=== PATIENT | male | born 1945 ===

== ENCOUNTER 2017-05-28 21:33 | Inpatient (IN) | payer MEDICARE, MEDICAID ==
[2017-05-28] MEDS ORDERED: Albuterol-Ipratrop 3 mg / 0.5 (3 ml) UD ONE (21:50)
[2017-05-28] MEDS ORDERED: Albuterol-Ipratrop 3 mg / 0.5 (3 ml) UD INH STA (21:54)
[2017-05-28 22:08] LABS: ABG ALLEN TEST YES; ARTERIAL BLOOD GAS HCO3 23.7 mmol/L (21-28); ARTERIAL BLOOD GAS O2 SAT 99.7 % (95-98); ARTERIAL BLOOD GAS PCO2 78 mm/Hg (35-45); ARTERIAL BLOOD GAS PH 7.18 (7.35-7.45); ARTERIAL BLOOD GAS PO2 289 mm/Hg (80-100); ARTERIAL BLOOD GAS TCO2 31.5 mmol/L (22-28)
[2017-05-28 22:25] LABS: BASO # 0.1 K/uL (0.0-0.2); BASO % 0.6 % (0.0-2.0); EOS # 1.4 K/uL (0.0-0.7); EOS % 13.5 % (0.0-4.0); HEMOGLOBIN 13.7 g/dL (12.0-18.0); LYMPH # 3.3 K/uL (1.0-4.3); LYMPH % 30.2 % (20.0-40.0); MEAN CELL VOLUME 86.1 fl (80.0-94.0); MEAN CORPUSCULAR HEMOGLOBIN 27.8 pg (27.0-31.0); MEAN CORPUSCULAR HGB CONC 32.3 g/dL (33.0-37.0); MEAN PLATELET VOLUME 6.9 fl (7.2-11.7); MONO # 1.1 K/uL (0.0-0.8); MONO % 9.8 % (0.0-10.0); NEUT # 4.9 K/uL (1.8-7.0); NEUT % 45.9 % (50.0-75.0); NRBC % 0.1 % (0.0-0.0); RBC 4.91 Mil/uL (4.40-5.90); RED CELL DISTRIBUTION WIDTH 16.6 % (11.5-14.5); WHITE BLOOD COUNT 10.8 K/uL (4.8-10.8)
[2017-05-28 22:38] LABS: ALB/GLOB RATIO 1.4 (1.0-2.1); ALBUMIN 4.4 g/dL (3.5-5.0); ALT/SGPT 27 U/L (21-72); AST/SGOT 25 U/L (17-59); BLOOD UREA NITROGEN 9 mg/dl (9-20); CALCIUM 8.9 mg/dL (8.4-10.2); GFR AFRICAN-AMERICAN > 60; GFR NON-AFRICAN AMERICAN > 60
[2017-05-28 22:44] LABS: PARTIAL THROMBOPLASTIN TIME 34.6 Seconds (25.6-37.1); PROTHROMBIN TIME 11.3 Seconds (9.8-13.1)
[2017-05-28] MEDS ORDERED: Magnesium Sulfate 2 gm/50 ml 2 GM/50 ML BAG ONE (22:46)
[2017-05-28] MEDS ORDERED: Magnesium Sulfate 2 gm/50 ml 2 GM/50 ML BAG IVPB ONE (22:51)
[2017-05-28] MEDS ORDERED: Albuterol 0.083% Inhal Sol (2.5 mg/3 mL) UD IH STA (22:51)
[2017-05-28] MEDS ORDERED: Albuterol 0.083% Inhal Sol (2.5 mg/3 mL) UD INH STA ×2 (23:04)
[2017-05-28 23:20] LABS: B-TYPE NATRIURETIC PEPTIDE 77.3 pg/ml (0-900)
[2017-05-28] MEDS ORDERED: Albuterol 0.083% Inhal Sol (2.5 mg/3 mL) UD ONE ×2 (23:20→23:58)
[2017-05-29] MEDS ORDERED: Albuterol-Ipratrop 3 mg / 0.5 (3 ml) UD INH PRN (00:03)
--- NOTE | 2017-05-29 00:07 | ED PDOC ---
HPI: SOB/CHF/COPD Time Seen by Provider: 05/28/17 21:48 Chief Complaint (Nursing): Shortness Of Breath Chief Complaint (Provider): Shortness Of Breath History Per: Patient History/Exam Limitations: no limitations Onset/Duration Of Symptoms: Mins (x 30) Current Symptoms Are (Timing): Still Present Additional Complaint(s): 72 year old female with a history of COPD, DM, CAD, HTN presents to the ED complaining of shortness of breath, onset 30 minutes prior to arrival. Patient also complains of chest tightness consistent with COPD exacerbation. Daughter give additional history that patient usually presents to [place] and that she sometimes gets anxious at hospitals. Limited history due to Ed caveat of dementia. PMD: Will Burroughs Past Medical History Reviewed: Historical Data, Nursing Documentation, Vital Signs Vital Signs: Last Vital Signs Temp 98.1 F 05/29/17 10:04 Pulse 89 05/29/17 13:25 Resp 18 05/29/17 13:25 BP 123/70 05/29/17 13:25 Pulse Ox 99 05/29/17 13:25 - Medical History PMH: Anxiety, Arthritis, CHF, COPD, Dementia, Emphysema, HTN - Surgical History Surgical History: No Surg Hx - Family History Family History: States: Unknown Family Hx - Immunization History Hx Tetanus Toxoid Vaccination: No Hx Influenza Vaccination: Yes Hx Pneumococcal Vaccination: Yes - Home Medications Home Medications: Ambulatory Orders Medication Instructions Recorded Acetaminophen [Tylenol 325mg tab] 2 tab PO Q4 PRN 05/29/17 Albuterol 0.083% [Albuterol 0.083% 3 ml INH Q6 PRN 05/29/17 Inhal [place] (2.5 mg/3 ml) UD] Aspirin [Ecotrin] 81 mg PO DAILY 05/29/17 Atorvastatin [Lipitor] 20 mg PO HS 05/29/17 Budesonide/Formoterol Fumarate 2 puff INH DAILY 05/29/17 [Symbicort 160-4.5 Mcg Inhaler] Clopidogrel [Plavix] 75 mg PO DAILY 05/29/17 DiphenhydrAMINE [Benadryl] 25 mg PO Q4 PRN 05/29/17 Insulin Aspart, Recombinant See Protocol SC ACHS 05/29/17 [Novolog] Magnesium Hydroxide [Milk Of 30 ml PO DAILY PRN 02/13/18 Magnesia] Metoprolol Succinate [Toprol XL] 25 mg PO DAILY 05/29/17 - Allergies Allergies/Adverse Reactions: Allergies Allergy/AdvReac Type Severity Reaction Status Date / Time No Known Allergies Allergy Unverified 12/07/12 10:38 Review of Systems ROS Statement: Except As Marked, All Systems Reviewed And Found Negative (and as per HPI) Cardiovascular: Positive for: Other (Chest tightness) Respiratory: Positive for: Shortness of Breath Physical Exam - Reviewed Nursing Documentation Reviewed: Yes Vital Signs Reviewed: Yes - Physical Exam Appears: Positive for: Uncomfortable, In Acute Distress Head Exam: Positive for: ATRAUMATIC, NORMOCEPHALIC Skin: Positive for: Warm, Dry Eye Exam: Positive for: EOMI, PERRL ENT: Positive for: Other (tacky mucus membranes) Neck: Positive for: Painless ROM, Supple Cardiovascular/Chest: Positive for: Chest Non Tender, Tachycardia. Negative for : Edema, Murmur Respiratory: Positive for: Accessory Muscle Use, Wheezing (inspiratory and expiratory), Respiratory Distress. Negative for: Rales, Stridor Gastrointestinal/Abdominal: Positive for: Soft. Negative for: Tenderness Back: Positive for: Normal Inspection. Negative for: Decreased ROM Extremity: Positive for: Normal ROM. Negative for: Pedal Edema, Calf Tenderness , Deformity Lymphatic: Negative for: Adenopathy Neurologic/Psych: Positive for: Alert, Oriented (x3), Mood/Affect (anxious mood and affec). Negative for: Motor/Sensory Deficits - Laboratory Results Result Diagrams: 05/29/17 09:00 05/29/17 09:00 - ECG O2 Sat by Pulse Oximetry: 98 (RA) Pulse Ox Interpretation: Normal - Critical Care Total Time (In Min): 30 Documented Critical Care: Time excludes all time spent performint seperately billable procedures Medical Decision Making Medical Decision Making: Time: 22:00 Initial Impression: COPD exacerbation, severe Differentials include but are not limited to: CHF, PNA, bronchitis Initial Plan: --Abg shock panel --EKG --BNP --CMP --Magnesium --Phosphrous --Troponin I --CBC --PTT --Prothrombin --CXR --(3) Duoneb 2.5 mg IH --Ativan .5 mg IVP --Duoneb 9 ml INH --Magnesium Sulfate 2 gm in 50 ml IVPB --Prednisolone 125 mg IVP --Blood cx Patient immediately put on Bipap and given Solumedrol and duonebs upon arrival. 1 hour after arrival, patient only slightly improved. IV magnesium ordered as well as Ativan 0.5mg and additional albuterol Labs c/w hypercarbia CXR with no pneumonia or effusion or congestion Discussed with Dr. Dickens for ICU admission Also discussed with Dr. Vila medical service [facility] family findings and plan of care 2400 On reeval pt more comfortable with BIPAP. Scribe Attestation: Documented by Penny Hagan, acting as a scribe for Rosa Bean MD. Provider Scribe Attestation: All medical record entries made by the Scribe were at my direction and personally dictated by me. I have reviewed the chart and agree that the record accurately reflects my personal performance of the history, physical exam, medical decision making, and the department course for this patient. I have also personally directed, reviewed, and agree with the discharge instructions and disposition. Disposition - Clinical Impression Clinical Impression: COPD exacerbation - Patient ED Disposition Is Patient to be Admitted: Yes - Disposition Disposition Time: 23:17 Condition: CRITICAL - Pt Status Changed To: Hospital Disposition Of: Inpatient - Admit Certification Admit to Inpatient:: After my assessment, the patient will require hospitalization for at least two midnights. This is because of the severity of symptoms shown, intensity of services needed, and/or the medical risk in this patient being treated as an outpatient. - POA Present On Arrival: None Critical Care Time - Critical Care Note Total Time (in mins): 30 Documented critical care: time excludes all time spent performing seperately billable procedures.
--- NOTE | 2017-05-29 00:15 | CP.PCM.CON ---
History of Present Illness - History of Present Illness History of Present Illness: CC/Reason for ICU: COPD exac with respiratory failure requiring bipap HPI: This is a 72 y/o male with MHx significant for COPD, CAD, HTN, and dementia who comes in with worsening SOB. Per family member, he was starting to have SOB that progressively became worse over past several days at his NH. This evening, [employer] SOB had acutely worsened. Family is unaware of CP/f/c/n/v/d. Patient unable to provide much information 2/2 dementia. ROS: limited because of patient inability to provide much accurate info MHx/SHx: COPD, ?CAD, HTN, Dementia; no surgeries Allergies: NKDA Medications: Per med rec; pending Family Hx: Patient cannot provide Social Hx: Lives in [place], no tobacco, no EtOH Surrogate dec mkr: Family member info on chart Past Patient History - Past Social History Smoking Status: Former Smoker - CARDIAC Hx Congestive Heart Failure: Yes Hx Hypertension: Yes - PULMONARY Hx Chronic Obstructive Pulmonary Disease (COPD): Yes Hx Emphysema: Yes - NEUROLOGICAL Hx Dementia: Yes - ENDOCRINE/METABOLIC Hx Diabetes Mellitus Type 2: Yes - MUSCULOSKELETAL/RHEUMATOLOGICAL Hx Arthritis: Yes - PSYCHIATRIC Hx Anxiety: Yes Meds Allergies/Adverse Reactions: Allergies Allergy/AdvReac Type Severity Reaction Status Date / Time No Known Allergies Allergy Unverified 12/07/12 10:38 - Medications Medications: Current Medications Albuterol/Ipratropium (Duoneb 3 Mg/0.5 Mg (3 Ml) Ud) 3 ml INH RQ6 PRN PRN Reason: Shortness of Breath Albuterol/Ipratropium (Duoneb 3 Mg/0.5 Mg (3 Ml) Ud) 3 ml INH RQID TIFFANIE Methylprednisolone 60 mg/ (Sodium Chloride) 50 mls @ 100 mls/hr IV Q8H TIFFANIE Azithromycin 500 mg/ Sodium (Chloride) 250 mls @ 250 mls/hr IVPB DAILY TIFFANIE PRN Reason: Protocol Azithromycin 500 mg/ Sodium (Chloride) 250 mls @ 250 mls/hr IVPB STAT STA PRN Reason: Protocol Stop: 05/29/17 01:04 Ceftriaxone Sodium 1 gm/ (Sodium Chloride) 100 mls @ 100 mls/hr IVPB DAILY TIFFANIE PRN Reason: Protocol Pantoprazole Sodium (Protonix Ec Tab) 40 mg PO DAILY TIFFANIE Physical Exam - Constitutional Appears: Chronically Ill Additional comments: On bipap - Head Exam Head Exam: ATRAUMATIC, NORMOCEPHALIC - Eye Exam Eye Exam: EOMI, PERRL - Neck Exam Neck exam: Positive for: Full Rom - Respiratory Exam Respiratory Exam: Rhonchi, Wheezes Additional comments: Coarse breath sounds on bipap - Cardiovascular Exam Cardiovascular Exam: REGULAR RHYTHM, +S1, +S2 - GI/Abdominal Exam GI & Abdominal Exam: Normal Bowel Sounds, Soft - Extremities Exam Extremities exam: Positive for: full ROM, normal inspection - Neurological Exam Additional comments: awake, alert, answers some questions - Psychiatric Exam Psychiatric exam: Normal Affect, Normal Mood - Skin Skin Exam: Dry, Normal Color Results - Vital Signs Recent Vital Signs: Last Vital Signs Temp 98.9 F 05/28/17 23:59 Pulse 128 H 05/28/17 23:59 Resp 28 H 05/28/17 23:59 BP 156/83 H 05/28/17 23:59 Pulse Ox 98 05/29/17 00:08 - Labs Result Diagrams: 05/28/17 22:10 05/28/17 22:10 Labs: Laboratory Results - last 24 hr 05/28/17 05/28/17 05/28/17 21:55 22:10 22:10 WBC 10.8 RBC 4.91 Hgb 13.7 Hct 42.3 MCV 86.1 MCH 27.8 MCHC 32.3 L RDW 16.6 H Plt Count 238 MPV 6.9 L Neut % (Auto) 45.9 L Lymph % (Auto) 30.2 [place] % (Auto) 9.8 Eos % (Auto) 13.5 H Baso % (Auto) 0.6 Neut # (Auto) 4.9 Lymph # (Auto) 3.3 [place] # (Auto) 1.1 H Eos # (Auto) 1.4 H Baso # (Auto) 0.1 PT INR APTT pCO2 78 H* pO2 289 H HCO3 23.7 ABG pH 7.18 L* ABG Total CO2 31.5 H ABG O2 Saturation 99.7 H ABG Base Excess -1.5 Michael Test Yes ABG Potassium 4.6 A-a O2 Difference -30.0 Sodium 131.0 L 135 Chloride 100.0 99 Glucose 108 Lactate 0.5 L FiO2 50.0 Crit Value Called To Dr wayne montano Crit Value Called By Crit Value Read Back Y Blood Gas Notified Time 2207 Potassium 4.6 Carbon Dioxide 26 Anion Gap 15 BUN 9 Creatinine 0.6 L Est GFR ( Amer) > 60 Est GFR (Non-Af Amer) > 60 Random Glucose 101 Calcium 8.9 Phosphorus 5.3 H Magnesium 2.0 Total Bilirubin 0.3 AST 25 ALT 27 Alkaline Phosphatase 54 Troponin I < 0.0120 NT-Pro-B Natriuret Pep 77.3 Total Protein 7.5 Albumin 4.4 Globulin 3.1 Albumin/Globulin Ratio 1.4 Arterial Blood Potassium 4.6 Influenza Typ A,B (EIA) 05/28/17 05/28/17 22:10 22:40 WBC RBC Hgb Hct MCV MCH MCHC RDW Plt Count MPV Neut % (Auto) Lymph % (Auto) [place] % (Auto) Eos % (Auto) Baso % (Auto) Neut # (Auto) Lymph # (Auto) [place] # (Auto) Eos # (Auto) Baso # (Auto) PT 11.3 INR 1.0 APTT 34.6 pCO2 pO2 HCO3 ABG pH ABG Total CO2 ABG O2 Saturation ABG Base Excess Michael Test ABG Potassium A-a O2 Difference Sodium Chloride Glucose Lactate FiO2 Crit Value Called To Crit Value Called By Crit Value Read Back Blood Gas Notified Time Potassium Carbon Dioxide Anion Gap BUN Creatinine Est GFR ( Amer) Est GFR (Non-Af Amer) Random Glucose Calcium Phosphorus Magnesium Total Bilirubin AST ALT Alkaline Phosphatase Troponin I NT-Pro-B Natriuret Pep Total Protein Albumin Globulin Albumin/Globulin Ratio Arterial Blood Potassium Influenza Typ A,B (EIA) Negative for flu a/b - EKG Data EKG Interpreted by: Myself EKG shows normal: Sinus rhythm - EKG Data EKG comments: Sinus tach - Imaging and Cardiology Chest x-ray Status: Image reviewed by me (no obvious infiltrates) Assessment & Plan (1) COPD (chronic obstructive pulmonary disease) Assessment and Plan: 72 y/o male with COPD presenting with respiratory failure requiring BiPAP. -Admit to ICU for close monitoring -Cont Bipap -NPO for now -Starting Ceftriaxone and Azithromycin IV -Continue IV solumedrol -Cont duoenbs -Protonix for GI PPx while on bipap and steroids -SCDs for DVT PPx Status: Acute (2) Respiratory failure Status: Acute
[2017-05-29] MEDS ORDERED: cefTRIAXone (Rocephin) 1 gm Inj ONE (00:45)
[2017-05-29 00:51] LABS: ABG ALLEN TEST YES; ARTERIAL BLOOD GAS HCO3 24.4 mmol/L (21-28); ARTERIAL BLOOD GAS PCO2 44 mm/Hg (35-45); ARTERIAL BLOOD GAS PH 7.36 (7.35-7.45); ARTERIAL BLOOD GAS PO2 264 mm/Hg (80-100); ARTERIAL BLOOD GAS TCO2 26.3 mmol/L (22-28)
[2017-05-29] MEDS ORDERED: Azithromycin 500 MG in Sodium Chloride 0.9% 250 ML IVPB STA (01:00)
[2017-05-29] MEDS ORDERED: methylPREDNISolone 60 MG in Sodium Chloride 0.9% 50 ML IV SCH (06:00)
[2017-05-29] MEDS ORDERED: Magnesium Hydroxide Susp 30 ml UD PO PRN (06:17)
[2017-05-29] MEDS: Insulin Lispro (humaLOG) 100 Units/ml Inj SC SCH ×4 (06:50→23:38)
[2017-05-29] MEDS ORDERED: Albuterol-Ipratrop 3 mg / 0.5 (3 ml) UD ONE ×3 (08:17→16:32)
[2017-05-29] MEDS: Albuterol-Ipratrop 3 mg / 0.5 (3 ml) UD INH SCH ×3 (08:20→16:33)
[2017-05-29] MEDS: Enoxaparin 40 mg Syringe SC SCH (09:24)
[2017-05-29] MEDS: Pantoprazole 40 mg EC Tab PO SCH (09:24)
[2017-05-29 09:47] LABS: HEMOGLOBIN 13.1 g/dL (12.0-18.0); MEAN CELL VOLUME 84.6 fl (80.0-94.0); MEAN CORPUSCULAR HEMOGLOBIN 27.7 pg (27.0-31.0); MEAN CORPUSCULAR HGB CONC 32.7 g/dL (33.0-37.0); RBC 4.74 Mil/uL (4.40-5.90); RED CELL DISTRIBUTION WIDTH 16.5 % (11.5-14.5); WHITE BLOOD COUNT 6.8 K/uL (4.8-10.8)
[2017-05-29 09:51] LABS: ALB/GLOB RATIO 1.3 (1.0-2.1); ALBUMIN 3.7 g/dL (3.5-5.0); ALT/SGPT 25 U/L (21-72); AST/SGOT 21 U/L (17-59); BLOOD UREA NITROGEN 9 mg/dl (9-20); CALCIUM 8.4 mg/dL (8.4-10.2); GFR AFRICAN-AMERICAN > 60; GFR NON-AFRICAN AMERICAN > 60; HDL CHOLESTEROL 52 MG/DL (30-70)
--- NOTE | 2017-05-29 10:00 | CARD ---
APPROVED REPORT EKG Measurement Heart [id number] <Conclusion> Sinus tachycardia Nonspecific ST abnormality Abnormal ECG artefact present
[2017-05-29 10:06] LABS: LDL CHOLESTEROL 66 mg/dL (0-129)
[2017-05-29 10:13] LABS: T4 6.91 ug/dl (5.5-11.0)
[2017-05-29 10:26] LABS: T3 0.935 nmol/L (1.49-2.60)
--- NOTE | 2017-05-29 10:38 | RAD ---
HISTORY: sopb COMPARISON: No prior. FINDINGS: LUNGS: No active pulmonary disease. PLEURA: No significant pleural effusion identified, no pneumothorax apparent. CARDIOVASCULAR: Atherosclerotic aortic calcifications. Cardiomediastinal silhouette within normal limits. OSSEOUS STRUCTURES: Degenerative changes. VISUALIZED UPPER ABDOMEN: Normal. OTHER FINDINGS: None. IMPRESSION: No active disease.
[2017-05-29] MEDS: Fluticasone-Salmeterol 250-50mcg Diskus INH SCH ×2 (11:23→21:12)
[2017-05-29 12:59] LABS: ABG ALLEN TEST YES; ARTERIAL BLOOD GAS HCO3 24.3 mmol/L (21-28); ARTERIAL BLOOD GAS HEMOGLOBIN 13.9 g/dL (11.7-17.4); ARTERIAL BLOOD GAS O2 CAPACITY 18.9 mL/dL (16-24); ARTERIAL BLOOD GAS O2 SAT 100.5 % (95-98); ARTERIAL BLOOD GAS PCO2 36 mm/Hg (35-45); ARTERIAL BLOOD GAS PH 7.42 (7.35-7.45); ARTERIAL BLOOD GAS PO2 143 mm/Hg (80-100); ARTERIAL BLOOD GAS TCO2 24.5 mmol/L (22-28)
[2017-05-29] MEDS: Azithromycin 500 MG in Sodium Chloride 0.9% 250 ML IVPB SCH (13:04)
--- NOTE | 2017-05-29 14:01 | CP.CCUPN ---
CCU Subjective - Physician Review Events Since Last Encounter (Free Text): 05/29/17 13:59 feels much better. CCU Objective - Vital Signs / Intake & Output Vital Signs (Last 4 hours): Vital Signs Temp Pulse Resp BP Pulse Ox 05/29/17 13:25 89 18 123/70 99 05/29/17 12:00 86 05/29/17 10:04 98.1 F 95 H 23 128/73 98 Intake and Output (Last 8hrs): Intake & Output 05/28/17 05/29/17 05/29/17 22:59 06:59 14:59 Weight 155 lb - Medications Active Medications: Active Medications Generic Name Dose Route Start Last Admin Trade Name Freq PRN Reason Stop Dose Admin Albuterol/Ipratropium 3 ml 05/29/17 00:03 Duoneb 3 Mg/0.5 Mg (3 Ml) Ud INH RQ6 PRN Shortness of Breath Albuterol/Ipratropium 3 ml 05/29/17 08:00 05/29/17 13:04 Duoneb 3 Mg/0.5 Mg (3 Ml) Ud INH 3 ml RQID TIFFANIE Administration Aspirin 81 mg 05/29/17 09:00 05/29/17 09:24 Ecotrin PO 81 mg DAILY TIFFANIE Administration Atorvastatin Calcium 20 mg 05/29/17 22:00 Lipitor PO HS TIFFANIE Bisoprolol Fumarate 2.5 mg 05/29/17 09:00 05/29/17 10:01 Zebeta PO 2.5 mg DAILY TIFFANIE Administration Clopidogrel Bisulfate 75 mg 05/29/17 09:00 05/29/17 09:24 Plavix PO 75 mg DAILY TIFFANIE Administration Enoxaparin Sodium 40 mg 05/29/17 09:00 05/29/17 09:24 Lovenox SC 40 mg DAILY TIFFANIE Administration Protocol Azithromycin 500 mg/ Sodium 250 mls @ 250 mls/hr 05/29/17 09:00 05/29/17 13: 04 Chloride IVPB 250 mls/hr DAILY TIFFANIE Administration Protocol Ceftriaxone Sodium 1 gm/ 100 mls @ 100 mls/hr 05/29/17 00:15 05/29/17 00:38 Sodium Chloride IVPB 100 mls/hr DAILY TIFFANIE Administration Protocol Insulin Human Lispro 0 units 05/29/17 05:00 05/29/17 11:08 Humalog SC Not Given Q6H TIFFANIE Protocol Magnesium Hydroxide 30 ml 05/29/17 06:17 Milk Of Magnesia PO DAILY PRN Constipation Methylprednisolone 60 mg 05/29/17 06:00 05/29/17 07:25 Solu-Medrol IV 60 mg Q8H TIFFANIE Administration Pantoprazole Sodium 40 mg 05/29/17 09:00 05/29/17 09:24 Protonix Ec Tab PO 40 mg DAILY TIFFANIE Administration Fluticasone/Salmeterol 1 puff 05/29/17 09:00 05/29/17 11:23 Advair Diskus 250/50 INH 1 puff Q12H TIFFANIE Administration - Patient Studies Lab Studies: Lab Studies 05/29/17 05/29/17 05/29/17 Range/Units 13:21 12:45 09:00 WBC (4.8-10.8) K/uL RBC (4.40-5.90) Mil/uL Hgb (12.0-18.0) g/dL Hct (35.0-51.0) % MCV (80.0-94.0) fl MCH (27.0-31.0) pg MCHC (33.0-37.0) g/dL RDW (11.5-14.5) % Plt Count (130-400) K/uL MPV (7.2-11.7) fl Neut % (Auto) (50.0-75.0) % Lymph % (Auto) (20.0-40.0) % [place] % (Auto) (0.0-10.0) % Eos % (Auto) (0.0-4.0) % Baso % (Auto) (0.0-2.0) % Neut # (Auto) (1.8-7.0) K/uL Lymph # (Auto) (1.0-4.3) K/uL [place] # (Auto) (0.0-0.8) K/uL Eos # (Auto) (0.0-0.7) K/uL Baso # (Auto) (0.0-0.2) K/uL PT (9.8-13.1) Seconds INR (0.9-1.2) APTT (25.6-37.1) Seconds pCO2 36 (35-45) mm/Hg pO2 143 H (80-100) mm/Hg HCO3 24.3 (21-28) mmol/L ABG pH 7.42 (7.35-7.45) ABG Total CO2 24.5 (22-28) mmol/L ABG O2 Saturation 100.5 H (95-98) % ABG O2 Content 19.0 (15-23) ML/dL ABG Base Excess -0.7 (-2.0-3.0) mmol/L ABG Hemoglobin 13.9 (11.7-17.4) g/dL ABG Carboxyhemoglobin 2.2 H (0.5-1.5) % POC ABG HHb (Measured) -0.5 L (0.0-5.0) % ABG Methemoglobin 2.2 (0.0-3.0) % ABG O2 Capacity 18.9 (16-24) mL/dL Michael Test Yes ABG Potassium (3.6-5.2) mmol/L A-a O2 Difference 97.0 mm/Hg Hgb O2 Saturation 96.1 (95.0-98.0) % Sodium (132-148) mmol/L Chloride (98-107) mmol/L Glucose (75-110) mg/dL Lactate (0.7-2.1) mmol/L Vent Mode Bipap Mechanical Rate 16 FiO2 40.0 % Inspiratory BiPAP 12 Expiratory BiPAP 6 Crit Value Called To Crit Value Called By Crit Value Read Back Blood Gas Notified Time Potassium (3.6-5.0) MMOL/L Carbon Dioxide (22-30) mmol/L Anion Gap (10-20) BUN (9-20) mg/dl Creatinine (0.8-1.5) mg/dl Est GFR ( Amer) Est GFR (Non-Af Amer) POC Glucose (mg/dL) 121 H 137 H (65-110) mg/dL Random Glucose (75-110) mg/dL Calcium (8.4-10.2) mg/dL Phosphorus (2.5-4.5) mg/dl Magnesium (1.6-2.3) MG/DL Total Bilirubin (0.2-1.3) mg/dl AST (17-59) U/L ALT (21-72) U/L Alkaline Phosphatase (38-126) U/L Troponin I (0.00-0.120) ng/mL NT-Pro-B Natriuret Pep (0-900) pg/ml Total Protein (6.3-8.2) G/DL Albumin (3.5-5.0) g/dL Globulin (2.2-3.9) gm/dL Albumin/Globulin Ratio (1.0-2.1) Triglycerides (0-149) mg/DL Cholesterol (0-199) mg/dL LDL Cholesterol Direct (0-129) mg/dL HDL Cholesterol (30-70) MG/DL Vitamin B12 (239-931) pg/mL Thyroxine (T4) (5.5-11.0) ug/dl Total T3 (1.49-2.60) nmol/L TSH 3rd Generation (0.46-4.68) mIU/ML Arterial Blood Potassium (3.6-5.2) mmol/L Influenza Typ A,B (EIA) (NEGATIVE) 05/29/17 05/29/17 05/29/17 Range/Units 09:00 09:00 06:42 WBC 6.8 (4.8-10.8) K/uL RBC 4.74 (4.40-5.90) Mil/uL Hgb 13.1 (12.0-18.0) g/dL Hct 40.1 (35.0-51.0) % MCV 84.6 (80.0-94.0) fl MCH 27.7 (27.0-31.0) pg MCHC 32.7 L (33.0-37.0) g/dL RDW 16.5 H (11.5-14.5) % Plt Count 231 (130-400) K/uL MPV (7.2-11.7) fl Neut % (Auto) (50.0-75.0) % Lymph % (Auto) (20.0-40.0) % [place] % (Auto) (0.0-10.0) % Eos % (Auto) (0.0-4.0) % Baso % (Auto) (0.0-2.0) % Neut # (Auto) (1.8-7.0) K/uL Lymph # (Auto) (1.0-4.3) K/uL [place] # (Auto) (0.0-0.8) K/uL Eos # (Auto) (0.0-0.7) K/uL Baso # (Auto) (0.0-0.2) K/uL PT (9.8-13.1) Seconds INR (0.9-1.2) APTT (25.6-37.1) Seconds pCO2 (35-45) mm/Hg pO2 (80-100) mm/Hg HCO3 (21-28) mmol/L ABG pH (7.35-7.45) ABG Total CO2 (22-28) mmol/L ABG O2 Saturation (95-98) % ABG O2 Content (15-23) ML/dL ABG Base Excess (-2.0-3.0) mmol/L ABG Hemoglobin (11.7-17.4) g/dL ABG Carboxyhemoglobin (0.5-1.5) % POC ABG HHb (Measured) (0.0-5.0) % ABG Methemoglobin (0.0-3.0) % ABG O2 Capacity (16-24) mL/dL Michael Test ABG Potassium (3.6-5.2) mmol/L A-a O2 Difference mm/Hg Hgb O2 Saturation (95.0-98.0) % Sodium 136 (132-148) mmol/L Chloride 102 (98-107) mmol/L Glucose (75-110) mg/dL Lactate (0.7-2.1) mmol/L Vent Mode Mechanical Rate FiO2 % Inspiratory BiPAP Expiratory BiPAP Crit Value Called To Crit Value Called By Crit Value Read Back Blood Gas Notified Time Potassium 4.4 (3.6-5.0) MMOL/L Carbon Dioxide 23 (22-30) mmol/L Anion Gap 15 (10-20) BUN 9 (9-20) mg/dl Creatinine 0.5 L (0.8-1.5) mg/dl Est GFR ( Amer) > 60 Est GFR (Non-Af Amer) > 60 POC Glucose (mg/dL) 143 H (65-110) mg/dL Random Glucose 152 H (75-110) mg/dL Calcium 8.4 (8.4-10.2) mg/dL Phosphorus (2.5-4.5) mg/dl Magnesium (1.6-2.3) MG/DL Total Bilirubin 0.3 (0.2-1.3) mg/dl AST 21 (17-59) U/L ALT 25 (21-72) U/L Alkaline Phosphatase 53 (38-126) U/L Troponin I (0.00-0.120) ng/mL NT-Pro-B Natriuret Pep (0-900) pg/ml Total Protein 6.5 (6.3-8.2) G/DL Albumin 3.7 (3.5-5.0) g/dL Globulin 2.8 (2.2-3.9) gm/dL Albumin/Globulin Ratio 1.3 (1.0-2.1) Triglycerides 30 (0-149) mg/DL Cholesterol 129 (0-199) mg/dL LDL Cholesterol Direct 66 (0-129) mg/dL HDL Cholesterol 52 (30-70) MG/DL Vitamin B12 384 (239-931) pg/mL Thyroxine (T4) 6.91 (5.5-11.0) ug/dl Total T3 0.935 L (1.49-2.60) nmol/L TSH 3rd Generation 0.89 (0.46-4.68) mIU/ML Arterial Blood Potassium (3.6-5.2) mmol/L Influenza Typ A,B (EIA) (NEGATIVE) 05/28/17 05/28/17 05/28/17 Range/Units 22:40 22:10 22:10 WBC 10.8 (4.8-10.8) K/uL RBC 4.91 (4.40-5.90) Mil/uL Hgb 13.7 (12.0-18.0) g/dL Hct 42.3 (35.0-51.0) % MCV 86.1 (80.0-94.0) fl MCH 27.8 (27.0-31.0) pg MCHC 32.3 L (33.0-37.0) g/dL RDW 16.6 H (11.5-14.5) % Plt Count 238 (130-400) K/uL MPV 6.9 L (7.2-11.7) fl Neut % (Auto) 45.9 L (50.0-75.0) % Lymph % (Auto) 30.2 (20.0-40.0) % [place] % (Auto) 9.8 (0.0-10.0) % Eos % (Auto) 13.5 H (0.0-4.0) % Baso % (Auto) 0.6 (0.0-2.0) % Neut # (Auto) 4.9 (1.8-7.0) K/uL Lymph # (Auto) 3.3 (1.0-4.3) K/uL [place] # (Auto) 1.1 H (0.0-0.8) K/uL Eos # (Auto) 1.4 H (0.0-0.7) K/uL Baso # (Auto) 0.1 (0.0-0.2) K/uL PT 11.3 (9.8-13.1) Seconds INR 1.0 (0.9-1.2) APTT 34.6 (25.6-37.1) Seconds pCO2 (35-45) mm/Hg pO2 (80-100) mm/Hg HCO3 (21-28) mmol/L ABG pH (7.35-7.45) ABG Total CO2 (22-28) mmol/L ABG O2 Saturation (95-98) % ABG O2 Content (15-23) ML/dL ABG Base Excess (-2.0-3.0) mmol/L ABG Hemoglobin (11.7-17.4) g/dL ABG Carboxyhemoglobin (0.5-1.5) % POC ABG HHb (Measured) (0.0-5.0) % ABG Methemoglobin (0.0-3.0) % ABG O2 Capacity (16-24) mL/dL Michael Test ABG Potassium (3.6-5.2) mmol/L A-a O2 Difference mm/Hg Hgb O2 Saturation (95.0-98.0) % Sodium (132-148) mmol/L Chloride (98-107) mmol/L Glucose (75-110) mg/dL Lactate (0.7-2.1) mmol/L Vent Mode Mechanical Rate FiO2 % Inspiratory BiPAP Expiratory BiPAP Crit Value Called To Crit Value Called By Crit Value Read Back Blood Gas Notified Time Potassium (3.6-5.0) MMOL/L Carbon Dioxide (22-30) mmol/L Anion Gap (10-20) BUN (9-20) mg/dl Creatinine (0.8-1.5) mg/dl Est GFR ( Amer) Est GFR (Non-Af Amer) POC Glucose (mg/dL) (65-110) mg/dL Random Glucose (75-110) mg/dL Calcium (8.4-10.2) mg/dL Phosphorus (2.5-4.5) mg/dl Magnesium (1.6-2.3) MG/DL Total Bilirubin (0.2-1.3) mg/dl AST (17-59) U/L ALT (21-72) U/L Alkaline Phosphatase (38-126) U/L Troponin I (0.00-0.120) ng/mL NT-Pro-B Natriuret Pep (0-900) pg/ml Total Protein (6.3-8.2) G/DL Albumin (3.5-5.0) g/dL Globulin (2.2-3.9) gm/dL Albumin/Globulin Ratio (1.0-2.1) Triglycerides (0-149) mg/DL Cholesterol (0-199) mg/dL LDL Cholesterol Direct (0-129) mg/dL HDL Cholesterol (30-70) MG/DL Vitamin B12 (239-931) pg/mL Thyroxine (T4) (5.5-11.0) ug/dl Total T3 (1.49-2.60) nmol/L TSH 3rd Generation (0.46-4.68) mIU/ML Arterial Blood Potassium (3.6-5.2) mmol/L Influenza Typ A,B (EIA) Negative for flu a/b (NEGATIVE) 05/28/17 05/28/17 05/28/17 Range/Units 22:10 21:55 00:42 WBC (4.8-10.8) K/uL RBC (4.40-5.90) Mil/uL Hgb (12.0-18.0) g/dL Hct (35.0-51.0) % MCV (80.0-94.0) fl MCH (27.0-31.0) pg MCHC (33.0-37.0) g/dL RDW (11.5-14.5) % Plt Count (130-400) K/uL MPV (7.2-11.7) fl Neut % (Auto) (50.0-75.0) % Lymph % (Auto) (20.0-40.0) % [place] % (Auto) (0.0-10.0) % Eos % (Auto) (0.0-4.0) % Baso % (Auto) (0.0-2.0) % Neut # (Auto) (1.8-7.0) K/uL Lymph # (Auto) (1.0-4.3) K/uL [place] # (Auto) (0.0-0.8) K/uL Eos # (Auto) (0.0-0.7) K/uL Baso # (Auto) (0.0-0.2) K/uL PT (9.8-13.1) Seconds INR (0.9-1.2) APTT (25.6-37.1) Seconds pCO2 78 H* 44 (35-45) mm/Hg pO2 289 H 264 H (80-100) mm/Hg HCO3 23.7 24.4 (21-28) mmol/L ABG pH 7.18 L* 7.36 (7.35-7.45) ABG Total CO2 31.5 H 26.3 (22-28) mmol/L ABG O2 Saturation 99.7 H 100.0 H (95-98) % ABG O2 Content (15-23) ML/dL ABG Base Excess -1.5 -0.8 (-2.0-3.0) mmol/L ABG Hemoglobin (11.7-17.4) g/dL ABG Carboxyhemoglobin (0.5-1.5) % POC ABG HHb (Measured) (0.0-5.0) % ABG Methemoglobin (0.0-3.0) % ABG O2 Capacity (16-24) mL/dL Michael Test Yes Yes ABG Potassium 4.6 4.7 (3.6-5.2) mmol/L A-a O2 Difference -30.0 -34.0 mm/Hg Hgb O2 Saturation (95.0-98.0) % Sodium 135 131.0 L 130.0 L (132-148) mmol/L Chloride 99 100.0 100.0 (98-107) mmol/L Glucose 108 147 H (75-110) mg/dL Lactate 0.5 L 1.1 (0.7-2.1) mmol/L Vent Mode Bipap Mechanical Rate 14 FiO2 50.0 40.0 % Inspiratory BiPAP 12 Expiratory BiPAP 6 Crit Value Called To Dr wayne montano Crit Value Called By [place] Crit Value Read Back Y Blood Gas Notified Time 220 Potassium 4.6 (3.6-5.0) MMOL/L Carbon Dioxide 26 (22-30) mmol/L Anion Gap 15 (10-20) BUN 9 (9-20) mg/dl Creatinine 0.6 L (0.8-1.5) mg/dl Est GFR ( Amer) > 60 Est GFR (Non-Af Amer) > 60 POC Glucose (mg/dL) (65-110) mg/dL Random Glucose 101 (75-110) mg/dL Calcium 8.9 (8.4-10.2) mg/dL Phosphorus 5.3 H (2.5-4.5) mg/dl Magnesium 2.0 (1.6-2.3) MG/DL Total Bilirubin 0.3 (0.2-1.3) mg/dl AST 25 (17-59) U/L ALT 27 (21-72) U/L Alkaline Phosphatase 54 (38-126) U/L Troponin I < 0.0120 (0.00-0.120) ng/mL NT-Pro-B Natriuret Pep 77.3 (0-900) pg/ml Total Protein 7.5 (6.3-8.2) G/DL Albumin 4.4 (3.5-5.0) g/dL Globulin 3.1 (2.2-3.9) gm/dL Albumin/Globulin Ratio 1.4 (1.0-2.1) Triglycerides (0-149) mg/DL Cholesterol (0-199) mg/dL LDL Cholesterol Direct (0-129) mg/dL HDL Cholesterol (30-70) MG/DL Vitamin B12 (239-931) pg/mL Thyroxine (T4) (5.5-11.0) ug/dl Total T3 (1.49-2.60) nmol/L TSH 3rd Generation (0.46-4.68) mIU/ML Arterial Blood Potassium 4.6 4.7 (3.6-5.2) mmol/L Influenza Typ A,B (EIA) (NEGATIVE) Laboratory Results - last 24 hr 05/28/17 05/28/17 05/28/17 00:42 21:55 22:10 WBC RBC Hgb Hct MCV MCH MCHC RDW Plt Count MPV Neut % (Auto) Lymph % (Auto) [place] % (Auto) Eos % (Auto) Baso % (Auto) Neut # (Auto) Lymph # (Auto) [place] # (Auto) Eos # (Auto) Baso # (Auto) PT INR APTT pCO2 44 78 H* pO2 264 H 289 H HCO3 24.4 23.7 ABG pH 7.36 7.18 L* ABG Total CO2 26.3 31.5 H ABG O2 Saturation 100.0 H 99.7 H ABG O2 Content ABG Base Excess -0.8 -1.5 ABG Hemoglobin ABG Carboxyhemoglobin POC ABG HHb (Measured) ABG Methemoglobin ABG O2 Capacity Michael Test Yes Yes ABG Potassium 4.7 4.6 A-a O2 Difference -34.0 -30.0 Hgb O2 Saturation Sodium 130.0 L 131.0 L 135 Chloride 100.0 100.0 99 Glucose 147 H 108 Lactate 1.1 0.5 L Vent Mode Bipap Mechanical Rate 14 FiO2 40.0 50.0 Inspiratory BiPAP 12 Expiratory BiPAP 6 Crit Value Called To Dr wayne montano Crit Value Called By [place] Crit Value Read Back Y Blood Gas Notified Time 2207 Potassium 4.6 Carbon Dioxide 26 Anion Gap 15 BUN 9 Creatinine 0.6 L Est GFR ( Amer) > 60 Est GFR (Non-Af Amer) > 60 POC Glucose (mg/dL) Random Glucose 101 Calcium 8.9 Phosphorus 5.3 H Magnesium 2.0 Total Bilirubin 0.3 AST 25 ALT 27 Alkaline Phosphatase 54 Troponin I < 0.0120 NT-Pro-B Natriuret Pep 77.3 Total Protein 7.5 Albumin 4.4 Globulin 3.1 Albumin/Globulin Ratio 1.4 Triglycerides Cholesterol LDL Cholesterol Direct HDL Cholesterol Vitamin B12 Thyroxine (T4) Total T3 TSH 3rd Generation Arterial Blood Potassium 4.7 4.6 Influenza Typ A,B (EIA) 05/28/17 05/28/17 05/28/17 22:10 22:10 22:40 WBC 10.8 RBC 4.91 Hgb 13.7 Hct 42.3 MCV 86.1 MCH 27.8 MCHC 32.3 L RDW 16.6 H Plt Count 238 MPV 6.9 L Neut % (Auto) 45.9 L Lymph % (Auto) 30.2 [place] % (Auto) 9.8 Eos % (Auto) 13.5 H Baso % (Auto) 0.6 Neut # (Auto) 4.9 Lymph # (Auto) 3.3 [place] # (Auto) 1.1 H Eos # (Auto) 1.4 H Baso # (Auto) 0.1 PT 11.3 INR 1.0 APTT 34.6 pCO2 pO2 HCO3 ABG pH ABG Total CO2 ABG O2 Saturation ABG O2 Content ABG Base Excess ABG Hemoglobin ABG Carboxyhemoglobin POC ABG HHb (Measured) ABG Methemoglobin ABG O2 Capacity Michael Test ABG Potassium A-a O2 Difference Hgb O2 Saturation Sodium Chloride Glucose Lactate Vent Mode Mechanical Rate FiO2 Inspiratory BiPAP Expiratory BiPAP Crit Value Called To Crit Value Called By Crit Value Read Back Blood Gas Notified Time Potassium Carbon Dioxide Anion Gap BUN Creatinine Est GFR ( Amer) Est GFR (Non-Af Amer) POC Glucose (mg/dL) Random Glucose Calcium Phosphorus Magnesium Total Bilirubin AST ALT Alkaline Phosphatase Troponin I NT-Pro-B Natriuret Pep Total Protein Albumin Globulin Albumin/Globulin Ratio Triglycerides Cholesterol LDL Cholesterol Direct HDL Cholesterol Vitamin B12 Thyroxine (T4) Total T3 TSH 3rd Generation Arterial Blood Potassium Influenza Typ A,B (EIA) Negative for flu a/b 05/29/17 05/29/17 05/29/17 06:42 09:00 09:00 WBC 6.8 RBC 4.74 Hgb 13.1 Hct 40.1 MCV 84.6 MCH 27.7 MCHC 32.7 L RDW 16.5 H Plt Count 231 MPV Neut % (Auto) Lymph % (Auto) [place] % (Auto) Eos % (Auto) Baso % (Auto) Neut # (Auto) Lymph # (Auto) [place] # (Auto) Eos # (Auto) Baso # (Auto) PT INR APTT pCO2 pO2 HCO3 ABG pH ABG Total CO2 ABG O2 Saturation ABG O2 Content ABG Base Excess ABG Hemoglobin ABG Carboxyhemoglobin POC ABG HHb (Measured) ABG Methemoglobin ABG O2 Capacity Michael Test ABG Potassium A-a O2 Difference Hgb O2 Saturation Sodium 136 Chloride 102 Glucose Lactate Vent Mode Mechanical Rate FiO2 Inspiratory BiPAP Expiratory BiPAP Crit Value Called To Crit Value Called By Crit Value Read Back Blood Gas Notified Time Potassium 4.4 Carbon Dioxide 23 Anion Gap 15 BUN 9 Creatinine 0.5 L Est GFR ( Amer) > 60 Est GFR (Non-Af Amer) > 60 POC Glucose (mg/dL) 143 H Random Glucose 152 H Calcium 8.4 Phosphorus Magnesium Total Bilirubin 0.3 AST 21 ALT 25 Alkaline Phosphatase 53 Troponin I NT-Pro-B Natriuret Pep Total Protein 6.5 Albumin 3.7 Globulin 2.8 Albumin/Globulin Ratio 1.3 Triglycerides 30 Cholesterol 129 LDL Cholesterol Direct 66 HDL Cholesterol 52 Vitamin B12 384 Thyroxine (T4) 6.91 Total T3 0.935 L TSH 3rd Generation 0.89 Arterial Blood Potassium Influenza Typ A,B (EIA) 05/29/17 05/29/17 05/29/17 09:00 12:45 13:21 WBC RBC Hgb Hct MCV MCH MCHC RDW Plt Count MPV Neut % (Auto) Lymph % (Auto) [place] % (Auto) Eos % (Auto) Baso % (Auto) Neut # (Auto) Lymph # (Auto) [place] # (Auto) Eos # (Auto) Baso # (Auto) PT INR APTT pCO2 36 pO2 143 H HCO3 24.3 ABG pH 7.42 ABG Total CO2 24.5 ABG O2 Saturation 100.5 H ABG O2 Content 19.0 ABG Base Excess -0.7 ABG Hemoglobin 13.9 ABG Carboxyhemoglobin 2.2 H POC ABG HHb (Measured) -0.5 L ABG Methemoglobin 2.2 ABG O2 Capacity 18.9 Michael Test Yes ABG Potassium A-a O2 Difference 97.0 Hgb O2 Saturation 96.1 Sodium Chloride Glucose Lactate Vent Mode Bipap Mechanical Rate 16 FiO2 40.0 Inspiratory BiPAP 12 Expiratory BiPAP 6 Crit Value Called To Crit Value Called By Crit Value Read Back Blood Gas Notified Time Potassium Carbon Dioxide Anion Gap BUN Creatinine Est GFR ( Amer) Est GFR (Non-Af Amer) POC Glucose (mg/dL) 137 H 121 H Random Glucose Calcium Phosphorus Magnesium Total Bilirubin AST ALT Alkaline Phosphatase Troponin I NT-Pro-B Natriuret Pep Total Protein Albumin Globulin Albumin/Globulin Ratio Triglycerides Cholesterol LDL Cholesterol Direct HDL Cholesterol Vitamin B12 Thyroxine (T4) Total T3 TSH 3rd Generation Arterial Blood Potassium Influenza Typ A,B (EIA) EKG/Cardiology Studies: Cardiology / EKG Studies 05/28/17 21:54 ELECTROCARDIOGRAM Stat Comment: Mode Of Transportation: Reason For Exam: sob Fingerstick Blood Sugar Results: 121 Assessment/Plan (1) COPD exacerbation Assessment and plan: patient doing much better. ABG normalized. alert and oriented. continue medical therapy, can stop bipap, continue bipap at night. downgrade to med/ surg floors. Current Visit: Yes Status: Acute
--- NOTE | 2017-05-29 19:42 | CP.PCM.HP ---
<Pardeep Ospina - Last Filed: 05/29/17 19:52> History of Present Illness - History of Present Illness History of Present Illness: History obtained from patents chart secondary to patient not able to provide information, currently on bipap and baseline dementia. 72 YO M w/ PMH of COPD, CAD, HTN presented with worsening SOB which has been worsening over the last couple of days as per family. PMH: COPD, Dementia, HTN, CAD PSH: None FH: unknown Allergies PMD: Will Burroughs Present on Admission - Present on Admission Any Indicators Present on Admission: No Past Patient History - Past Medical History & Family History Past Medical History?: Yes - Past Social History Smoking Status: Former Smoker - CARDIAC Hx Cardiac Disorders: Yes Hx Congestive Heart Failure: Yes Hx Hypertension: Yes - PULMONARY Hx Respiratory Disorders: Yes Hx Chronic Obstructive Pulmonary Disease (COPD): Yes Hx Emphysema: Yes - NEUROLOGICAL Hx Neurological Disorder: Yes Hx Dementia: Yes - HEENT Hx HEENT Problems: No - RENAL Hx Chronic Kidney Disease: No - ENDOCRINE/METABOLIC Hx Endocrine Disorders: Yes Hx Diabetes Mellitus Type 2: Yes - HEMATOLOGICAL/ONCOLOGICAL Hx Blood Disorders: No - INTEGUMENTARY Hx Dermatological Problems: No - MUSCULOSKELETAL/RHEUMATOLOGICAL Hx Musculoskeletal Disorders: Yes Hx Arthritis: Yes Hx Falls: No - GASTROINTESTINAL Hx Gastrointestinal Disorders: No - GENITOURINARY/GYNECOLOGICAL Hx Genitourinary Disorders: No - PSYCHIATRIC Hx Psychophysiologic Disorder: Yes Hx Anxiety: Yes Hx Substance Use: No - SURGICAL HISTORY Hx Surgeries: No - ANESTHESIA Hx Anesthesia: No Meds Home Medications: Home Medication List Medication Instructions Recorded Confirmed Type Albuterol/Ipratropium [Duoneb 3 3 ml INH RQ6 PRN neb 06/01/17 Rx mg/0.5 mg (3 ml) UD] Albuterol/Ipratropium [Duoneb 3 3 ml INH RQID neb 06/01/17 Rx mg/0.5 mg (3 ml) UD] Azithromycin [Zithromax] 500 mg PO DAILY #5 tablet 06/01/17 Rx Bisoprolol [Zebeta] 2.5 mg PO DAILY tab 06/01/17 Rx Enoxaparin [Lovenox] 40 mg SC DAILY syr 06/01/17 Rx Methylprednisolone [Medrol Dose 4 mg PO DAILY #21 mg 06/01/17 Rx Pack (21 tabs)] Pantoprazole [Protonix EC Tab] 40 mg PO DAILY ect 06/01/17 Rx QUEtiapine [Seroquel] 12.5 mg PO HS tab 06/01/17 Rx Allergies/Adverse Reactions: Allergies Allergy/AdvReac Type Severity Reaction Status Date / Time shellfish derived Allergy ANAPHYLAXIS Verified 05/29/17 18:27 Physical Exam - Constitutional Appears: Chronically Ill - Head Exam Head Exam: NORMAL INSPECTION - Eye Exam Eye Exam: Normal appearance - Respiratory Exam Respiratory Exam: Rhonchi, Wheezes Additional comments: 0n bipap - Cardiovascular Exam Cardiovascular Exam: REGULAR RHYTHM, +S1, +S2 - GI/Abdominal Exam GI & Abdominal Exam: Soft. absent: Tenderness - Extremities Exam Extremities exam: Negative for: calf tenderness - Neurological Exam Neurological exam: Alert - Skin Skin Exam: Warm Results - Vital Signs Recent Vital Signs: Last Vital Signs Temp 98.9 F 05/29/17 17:15 Pulse 91 H 05/29/17 17:15 Resp 17 05/29/17 17:31 BP 113/67 05/29/17 17:15 Pulse Ox 96 05/29/17 17:31 - Labs Result Diagrams: 05/29/17 09:00 05/29/17 09:00 Labs: Laboratory Results - last 24 hr 05/28/17 05/28/17 05/28/17 00:42 21:55 22:10 WBC RBC Hgb Hct MCV MCH MCHC RDW Plt Count MPV Neut % (Auto) Lymph % (Auto) [place] % (Auto) Eos % (Auto) Baso % (Auto) Neut # (Auto) Lymph # (Auto) [place] # (Auto) Eos # (Auto) Baso # (Auto) PT INR APTT pCO2 44 78 H* pO2 264 H 289 H HCO3 24.4 23.7 ABG pH 7.36 7.18 L* ABG Total CO2 26.3 31.5 H ABG O2 Saturation 100.0 H 99.7 H ABG O2 Content ABG Base Excess -0.8 -1.5 ABG Hemoglobin ABG Carboxyhemoglobin POC ABG HHb (Measured) ABG Methemoglobin ABG O2 Capacity Michael Test Yes Yes ABG Potassium 4.7 4.6 A-a O2 Difference -34.0 -30.0 Hgb O2 Saturation Sodium 130.0 L 131.0 L 135 Chloride 100.0 100.0 99 Glucose 147 H 108 Lactate 1.1 0.5 L Vent Mode Bipap Mechanical Rate 14 FiO2 40.0 50.0 Inspiratory BiPAP 12 Expiratory BiPAP 6 Crit Value Called To Dr wayne montano Crit Value Called By [place] Crit Value Read Back Y Blood Gas Notified Time 2206 Potassium 4.6 Carbon Dioxide 26 Anion Gap 15 BUN 9 Creatinine 0.6 L Est GFR ( Amer) > 60 Est GFR (Non-Af Amer) > 60 POC Glucose (mg/dL) Random Glucose 101 Hemoglobin A1c Calcium 8.9 Phosphorus 5.3 H Magnesium 2.0 Total Bilirubin 0.3 AST 25 ALT 27 Alkaline Phosphatase 54 Troponin I < 0.0120 NT-Pro-B Natriuret Pep 77.3 Total Protein 7.5 Albumin 4.4 Globulin 3.1 Albumin/Globulin Ratio 1.4 Triglycerides Cholesterol LDL Cholesterol Direct HDL Cholesterol Vitamin B12 Thyroxine (T4) Total T3 TSH 3rd Generation Arterial Blood Potassium 4.7 4.6 Influenza Typ A,B (EIA) 05/28/17 05/28/17 05/28/17 22:10 22:10 22:40 WBC 10.8 RBC 4.91 Hgb 13.7 Hct 42.3 MCV 86.1 MCH 27.8 MCHC 32.3 L RDW 16.6 H Plt Count 238 MPV 6.9 L Neut % (Auto) 45.9 L Lymph % (Auto) 30.2 [place] % (Auto) 9.8 Eos % (Auto) 13.5 H Baso % (Auto) 0.6 Neut # (Auto) 4.9 Lymph # (Auto) 3.3 [place] # (Auto) 1.1 H Eos # (Auto) 1.4 H Baso # (Auto) 0.1 PT 11.3 INR 1.0 APTT 34.6 pCO2 pO2 HCO3 ABG pH ABG Total CO2 ABG O2 Saturation ABG O2 Content ABG Base Excess ABG Hemoglobin ABG Carboxyhemoglobin POC ABG HHb (Measured) ABG Methemoglobin ABG O2 Capacity Michael Test ABG Potassium A-a O2 Difference Hgb O2 Saturation Sodium Chloride Glucose Lactate Vent Mode Mechanical Rate FiO2 Inspiratory BiPAP Expiratory BiPAP Crit Value Called To Crit Value Called By Crit Value Read Back Blood Gas Notified Time Potassium Carbon Dioxide Anion Gap BUN Creatinine Est GFR ( Amer) Est GFR (Non-Af Amer) POC Glucose (mg/dL) Random Glucose Hemoglobin A1c Calcium Phosphorus Magnesium Total Bilirubin AST ALT Alkaline Phosphatase Troponin I NT-Pro-B Natriuret Pep Total Protein Albumin Globulin Albumin/Globulin Ratio Triglycerides Cholesterol LDL Cholesterol Direct HDL Cholesterol Vitamin B12 Thyroxine (T4) Total T3 TSH 3rd Generation Arterial Blood Potassium Influenza Typ A,B (EIA) Negative for flu a/b 05/29/17 05/29/17 05/29/17 06:42 09:00 09:00 WBC 6.8 RBC 4.74 Hgb 13.1 Hct 40.1 MCV 84.6 MCH 27.7 MCHC 32.7 L RDW 16.5 H Plt Count 231 MPV Neut % (Auto) Lymph % (Auto) [place] % (Auto) Eos % (Auto) Baso % (Auto) Neut # (Auto) Lymph # (Auto) [place] # (Auto) Eos # (Auto) Baso # (Auto) PT INR APTT pCO2 pO2 HCO3 ABG pH ABG Total CO2 ABG O2 Saturation ABG O2 Content ABG Base Excess ABG Hemoglobin ABG Carboxyhemoglobin POC ABG HHb (Measured) ABG Methemoglobin ABG O2 Capacity Michael Test ABG Potassium A-a O2 Difference Hgb O2 Saturation Sodium 136 Chloride 102 Glucose Lactate Vent Mode Mechanical Rate FiO2 Inspiratory BiPAP Expiratory BiPAP Crit Value Called To Crit Value Called By Crit Value Read Back Blood Gas Notified Time Potassium 4.4 Carbon Dioxide 23 Anion Gap 15 BUN 9 Creatinine 0.5 L Est GFR ( Amer) > 60 Est GFR (Non-Af Amer) > 60 POC Glucose (mg/dL) 143 H Random Glucose 152 H Hemoglobin A1c Calcium 8.4 Phosphorus Magnesium Total Bilirubin 0.3 AST 21 ALT 25 Alkaline Phosphatase 53 Troponin I NT-Pro-B Natriuret Pep Total Protein 6.5 Albumin 3.7 Globulin 2.8 Albumin/Globulin Ratio 1.3 Triglycerides 30 Cholesterol 129 LDL Cholesterol Direct 66 HDL Cholesterol 52 Vitamin B12 384 Thyroxine (T4) 6.91 Total T3 0.935 L TSH 3rd Generation 0.89 Arterial Blood Potassium Influenza Typ A,B (EIA) 05/29/17 05/29/17 05/29/17 09:00 09:00 12:45 WBC RBC Hgb Hct MCV MCH MCHC RDW Plt Count MPV Neut % (Auto) Lymph % (Auto) [place] % (Auto) Eos % (Auto) Baso % (Auto) Neut # (Auto) Lymph # (Auto) [place] # (Auto) Eos # (Auto) Baso # (Auto) PT INR APTT pCO2 36 pO2 143 H HCO3 24.3 ABG pH 7.42 ABG Total CO2 24.5 ABG O2 Saturation 100.5 H ABG O2 Content 19.0 ABG Base Excess -0.7 ABG Hemoglobin 13.9 ABG Carboxyhemoglobin 2.2 H POC ABG HHb (Measured) -0.5 L ABG Methemoglobin 2.2 ABG O2 Capacity 18.9 Michael Test Yes ABG Potassium A-a O2 Difference 97.0 Hgb O2 Saturation 96.1 Sodium Chloride Glucose Lactate Vent Mode Bipap Mechanical Rate 16 FiO2 40.0 Inspiratory BiPAP 12 Expiratory BiPAP 6 Crit Value Called To Crit Value Called By Crit Value Read Back Blood Gas Notified Time Potassium Carbon Dioxide Anion Gap BUN Creatinine Est GFR ( Amer) Est GFR (Non-Af Amer) POC Glucose (mg/dL) 137 H Random Glucose Hemoglobin A1c 5.8 Calcium Phosphorus Magnesium Total Bilirubin AST ALT Alkaline Phosphatase Troponin I NT-Pro-B Natriuret Pep Total Protein Albumin Globulin Albumin/Globulin Ratio Triglycerides Cholesterol LDL Cholesterol Direct HDL Cholesterol Vitamin B12 Thyroxine (T4) Total T3 TSH 3rd Generation Arterial Blood Potassium Influenza Typ A,B (EIA) 05/29/17 05/29/17 13:21 16:32 WBC RBC Hgb Hct MCV MCH MCHC RDW Plt Count MPV Neut % (Auto) Lymph % (Auto) [place] % (Auto) Eos % (Auto) Baso % (Auto) Neut # (Auto) Lymph # (Auto) [place] # (Auto) Eos # (Auto) Baso # (Auto) PT INR APTT pCO2 pO2 HCO3 ABG pH ABG Total CO2 ABG O2 Saturation ABG O2 Content ABG Base Excess ABG Hemoglobin ABG Carboxyhemoglobin POC ABG HHb (Measured) ABG Methemoglobin ABG O2 Capacity Michael Test ABG Potassium A-a O2 Difference Hgb O2 Saturation Sodium Chloride Glucose Lactate Vent Mode Mechanical Rate FiO2 Inspiratory BiPAP Expiratory BiPAP Crit Value Called To Crit Value Called By Crit Value Read Back Blood Gas Notified Time Potassium Carbon Dioxide Anion Gap BUN Creatinine Est GFR ( Amer) Est GFR (Non-Af Amer) POC Glucose (mg/dL) 121 H 135 H Random Glucose Hemoglobin A1c Calcium Phosphorus Magnesium Total Bilirubin AST ALT Alkaline Phosphatase Troponin I NT-Pro-B Natriuret Pep Total Protein Albumin Globulin Albumin/Globulin Ratio Triglycerides Cholesterol LDL Cholesterol Direct HDL Cholesterol Vitamin B12 Thyroxine (T4) Total T3 TSH 3rd Generation Arterial Blood Potassium Influenza Typ A,B (EIA) Assessment & Plan - Assessment and Plan (Free Text) Assessment: 1) COPD exacerbation - Loading dose of Solumedrol in ER - Methyprednisone Q8 - Fluticason/ Salmetrol - Duoneb Q6 - Azithromycin+ Ceftriaxone - X ray : no active disease - Currently on Bipap 2) DVT prophylaxis: Lovenox <Ramos Vila - Last Filed: 06/01/17 16:32> Results - Vital Signs Recent Vital Signs: Last Vital Signs Temp 97.6 F 06/01/17 08:30 Pulse 76 06/01/17 08:30 Resp 20 06/01/17 08:30 BP 119/70 06/01/17 08:30 Pulse Ox 96 06/01/17 08:30 - Labs Result Diagrams: 05/31/17 05:50 05/31/17 05:50 Labs: Laboratory Results - last 24 hr 05/31/17 06/01/17 21:30 13:12 POC Glucose (mg/dL) 107 107 Assessment & Plan - Assessment and Plan (Free Text) Assessment: Patient was personally seen and examined by me in rounds with residents. Available labs and diagnostic data reviewed. Case, Patient's condition and management plan discussed with residents in rounds. Agree with resident's documentation. Plan: As ordered. Ramos Vila MD Plan: Patient was personally seen and examined by me in rounds with residents. Available labs and diagnostic data reviewed. Case, Patient's condition and management plan discussed with residents in rounds. Agree with resident's documentation. Plan: As ordered. Ramos Vila MD
[2017-05-30] MEDS: Insulin Lispro (humaLOG) 100 Units/ml Inj SC SCH ×4 (05:13→23:00)
[2017-05-30] MEDS: Albuterol-Ipratrop 3 mg / 0.5 (3 ml) UD INH SCH ×4 (08:33→19:32)
[2017-05-30] MEDS: Enoxaparin 40 mg Syringe SC SCH (09:04)
[2017-05-30] MEDS: Pantoprazole 40 mg EC Tab PO SCH (09:04)
[2017-05-30] MEDS: Fluticasone-Salmeterol 250-50mcg Diskus INH SCH ×2 (09:12→21:17)
--- NOTE | 2017-05-30 09:52 | PN ---
DATE: 05/30/2017 SUBJECTIVE: The patient is seen and examined. Interim events noted. Consults noted and appreciated. The patient is now on regular floor. was given yesterday. The patient feels much better, ambulating with assistance, but is very confused. No chest pain. No shortness of breath. The patient feels okay. Denies any specific complaints. Although, the patient is not a good historian. The patient is able to ambulate to the bathroom with assistance, moving bowels all right, eating okay. Breathing on nasal cannula without any distress at this time. PHYSICAL EXAMINATION: VITAL SIGNS: Stable. HEART: S1 and S2, normal and regular. LUNGS: Good bilateral air exchange. No rales or rhonchi. ABDOMEN: Soft and nontender. No organomegaly. No fluid. Bowel sounds are present and normal. EXTREMITIES: No edema. No calf swelling. No tenderness. No acute ischemia. 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 The patient show signs of confusion. PLAN: As ordered. Ramos Vila MD
[2017-05-30] MEDS: Azithromycin 500 MG in Sodium Chloride 0.9% 250 ML IVPB SCH (12:24)
--- NOTE | 2017-05-30 12:25 | PQF GENQUE ---
Dr. Vila, 2 queries: 1. 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 Please indicate in your next progress note your agreement with weight loss consultant or provide clarification that this diagnosis is not a current condition. Diagnosis:Respiratory Failure Documented by: Dr. George Location: Consult of 05/29/17 2. If in agreement also please document the Acuity: Acute versus Chronic and Type: Hypoxic or Hypercapnic: Respiratory Failure OR: Disagree OR: Other explanation of clinical finding Consult Dr. 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 Respiratory Exam: Rhonchi, Wheezes 1) COPD (chronic obstructive pulmonary disease) Assessment and Plan: 72 y/o male with COPD presenting with respiratory failure requiring BiPAP. -Admit to ICU for close monitoring -Cont Bipap -NPO for now - Starting Ceftriaxone and Azithromycin IV -Continue IV solumedrol -Cont duoenbs -Protonix for GI PPx while on bipap and steroids -SCDs for DVT PPx Status: Acute (2) Respiratory failure Status: Acute V/S tab in EMR :Respiratory Rate: ;21->30-.>28->18 Respiratory Effort: 05/28/17@ 23:24: (SOB Labored Accessory Muscle Use Nasal Flaring Pursed Lip Retracting Non-Rebreather -> BiPAP This form is a permanent part of the medical record Clarification of your documentation is requested to better reflect the severity of illness and intensity of treatment of your patient. Indicators present [] Specify: [] [] Specify: [] [] Specify: [] [] Specify: [] Location in the medical record that reflects the above clinical findings: [] Treatment Provided: [] PHYSICIAN'S RESPONSE Based on your medical judgment of the clinical indicators outlined above please clarify the following: [] Practitioner response [] If unable to determine, please check the box, sign and date. Present On Admission (POA) Indicator: [] Present at the time of admission [] Not present at the time of admission [] Clinically Undetermined In responding to this query, please exercise your independent professional judgment. The fact that a question is asked does not imply that any particular answer is desired or expected. Thank you for your clarification on this documentation. If you have any questions please call. * Thank you, Chelsi Umanzor RN ext. #[phone] MTDD
[2017-05-31 06:32] LABS: HEMOGLOBIN 12.9 g/dL (12.0-18.0); MEAN CELL VOLUME 84.1 fl (80.0-94.0); MEAN CORPUSCULAR HEMOGLOBIN 27.6 pg (27.0-31.0); MEAN CORPUSCULAR HGB CONC 32.8 g/dL (33.0-37.0); RBC 4.69 Mil/uL (4.40-5.90); RED CELL DISTRIBUTION WIDTH 16.3 % (11.5-14.5); WHITE BLOOD COUNT 11.9 K/uL (4.8-10.8)
[2017-05-31 06:49] LABS: BLOOD UREA NITROGEN 12 mg/dl (9-20); CALCIUM 8.2 mg/dL (8.4-10.2); GFR AFRICAN-AMERICAN > 60; GFR NON-AFRICAN AMERICAN > 60
[2017-05-31] MEDS: Insulin Lispro (humaLOG) 100 Units/ml Inj SC SCH ×4 (07:03→22:17)
[2017-05-31] MEDS: Albuterol-Ipratrop 3 mg / 0.5 (3 ml) UD INH SCH ×4 (08:03→19:58)
[2017-05-31] MEDS: Fluticasone-Salmeterol 250-50mcg Diskus INH SCH ×2 (08:57→22:14)
[2017-05-31] MEDS: Enoxaparin 40 mg Syringe SC SCH (09:00)
[2017-05-31] MEDS: Pantoprazole 40 mg EC Tab PO SCH (09:01)
[2017-05-31] MEDS: Azithromycin 500 MG in Sodium Chloride 0.9% 250 ML IVPB SCH (11:03)
[2017-05-31] MEDS: MethylPREDNISolone 40 mg Vial IVP SCH ×2 (11:08→22:16)
--- NOTE | 2017-05-31 12:04 | CP.PCM.CON ---
History of Present Illness - History of Present Illness History of Present Illness: consult requested as pt is having episodes of confusion and agitation as per staff History obtained from patents chart secondary to patient not able to provide information, currently sedated . 72 YO M w/ PMH of COPD, CAD, HTN presented with worsening SOB which has been worsening over the last couple of days as per family. pt reportedly has been having episodes of behavioral disturbances with agitation reportedly however as per staff pt has been sleeping all morning today with out episodes of behavioral disturbances Past Patient History - Past Medical History & Family History Past Medical History?: Yes - Past Social History Smoking Status: Former Smoker - CARDIAC Hx Cardiac Disorders: Yes Hx Congestive Heart Failure: Yes Hx Hypertension: Yes - PULMONARY Hx Respiratory Disorders: Yes Hx Chronic Obstructive Pulmonary Disease (COPD): Yes Hx Emphysema: Yes - NEUROLOGICAL Hx Neurological Disorder: Yes Hx Dementia: Yes - HEENT Hx HEENT Problems: No - RENAL Hx Chronic Kidney Disease: No - ENDOCRINE/METABOLIC Hx Endocrine Disorders: Yes Hx Diabetes Mellitus Type 2: Yes - HEMATOLOGICAL/ONCOLOGICAL Hx Blood Disorders: No - INTEGUMENTARY Hx Dermatological Problems: No - MUSCULOSKELETAL/RHEUMATOLOGICAL Hx Musculoskeletal Disorders: Yes Hx Arthritis: Yes Hx Falls: No - GASTROINTESTINAL Hx Gastrointestinal Disorders: No - GENITOURINARY/GYNECOLOGICAL Hx Genitourinary Disorders: No - PSYCHIATRIC Hx Psychophysiologic Disorder: Yes Hx Anxiety: Yes Hx Substance Use: No - SURGICAL HISTORY Hx Surgeries: No - ANESTHESIA Hx Anesthesia: No Meds Allergies/Adverse Reactions: Allergies Allergy/AdvReac Type Severity Reaction Status Date / Time shellfish derived Allergy ANAPHYLAXIS Verified 05/29/17 18:27 - Medications Medications: Current Medications Albuterol/Ipratropium (Duoneb 3 Mg/0.5 Mg (3 Ml) Ud) 3 ml INH RQ6 PRN PRN Reason: Shortness of Breath Albuterol/Ipratropium (Duoneb 3 Mg/0.5 Mg (3 Ml) Ud) 3 ml INH RQID [facility] Last Admin: 05/31/17 11:29 Dose: 3 ml Aspirin (Ecotrin) 81 mg PO DAILY [facility] Last Admin: 05/31/17 08:59 Dose: 81 mg Atorvastatin Calcium (Lipitor) 20 mg PO HS [facility] Last Admin: 05/30/17 21:18 Dose: 20 mg Bisoprolol Fumarate (Zebeta) 2.5 mg PO DAILY [facility] Last Admin: 05/31/17 09:02 Dose: 2.5 mg Clopidogrel Bisulfate (Plavix) 75 mg PO DAILY [facility] Last Admin: 05/30/17 09:04 Dose: 75 mg Enoxaparin Sodium (Lovenox) 40 mg SC DAILY TIFFANIE PRN Reason: Protocol Last Admin: 05/31/17 09:00 Dose: 40 mg Azithromycin 500 mg/ Sodium (Chloride) 250 mls @ 250 mls/hr IVPB DAILY TIFFANIE PRN Reason: Protocol Last Admin: 05/31/17 11:03 Dose: 250 mls/hr Ceftriaxone Sodium 1 gm/ (Sodium Chloride) 100 mls @ 100 mls/hr IVPB DAILY TIFFANIE PRN Reason: Protocol Last Admin: 05/31/17 09:01 Dose: 100 mls/hr Insulin Human Lispro (Humalog) 0 units SC Q6H TIFFANIE PRN Reason: Protocol Last Admin: 05/31/17 07:03 Dose: Not Given Lorazepam (Ativan) 0.5 mg IM Q6 PRN PRN Reason: Agitation Last Admin: 05/29/17 21:19 Dose: 0.5 mg Magnesium Hydroxide (Milk Of Magnesia) 30 ml PO DAILY PRN PRN Reason: Constipation Methylprednisolone (Solu-Medrol) 30 mg IVP Q12 [facility] Last Admin: 05/31/17 11:08 Dose: 30 mg Pantoprazole Sodium (Protonix Ec Tab) 40 mg PO DAILY [facility] Last Admin: 05/31/17 09:01 Dose: 40 mg Fluticasone/Salmeterol (Advair Diskus 250/50) 1 puff INH Q12H [facility] Last Admin: 05/31/17 08:57 Dose: 1 puff Results - Vital Signs Recent Vital Signs: Last Vital Signs Temp 97.3 F L 05/31/17 07:47 Pulse 74 05/31/17 07:47 Resp 20 05/31/17 07:47 BP 157/78 H 05/31/17 07:47 Pulse Ox 96 05/31/17 07:47 - Labs Result Diagrams: 05/31/17 05:50 05/31/17 05:50 Labs: Laboratory Results - last 24 hr 05/30/17 05/30/17 05/31/17 16:46 21:12 05:45 WBC RBC Hgb Hct MCV MCH MCHC RDW Plt Count Sodium Potassium Chloride Carbon Dioxide Anion Gap BUN Creatinine Est GFR ( Amer) Est GFR (Non-Af Amer) POC Glucose (mg/dL) 149 H 140 H 123 H Random Glucose Calcium 05/31/17 05/31/17 05/31/17 05:50 05:50 10:59 WBC 11.9 H D RBC 4.69 Hgb 12.9 Hct 39.4 MCV 84.1 MCH 27.6 MCHC 32.8 L RDW 16.3 H Plt Count 239 Sodium 139 Potassium 3.9 Chloride 104 Carbon Dioxide 23 Anion Gap 16 BUN 12 Creatinine 0.5 L Est GFR ( Amer) > 60 Est GFR (Non-Af Amer) > 60 POC Glucose (mg/dL) 156 H Random Glucose 127 H Calcium 8.2 L Assessment & Plan - Assessment and Plan (Free Text) Assessment: major neurocognitive disorder [facility] Plan: recommend haldol 0.25mg q6 prn for agitation
--- NOTE | 2017-05-31 13:24 | CP.PCM.PN ---
<Pardeep Ospina - Last Filed: 05/31/17 13:32> Subjective - Date & Time of Evaluation Date of Evaluation: 05/31/17 Time of Evaluation: 13:20 - Subjective Subjective: Patient resting comfortably in no acute distress. Doing much better. No overnight events reported. Objective - Vital Signs/Intake and Output Vital Signs (last 24 hours): Temp Pulse Resp BP Pulse Ox 97.3 F L 74 20 157/78 H 96 05/31/17 07:47 05/31/17 07:47 05/31/17 07:47 05/31/17 07:47 05/31/17 07:47 - Medications Medications: Current Medications Albuterol/Ipratropium (Duoneb 3 Mg/0.5 Mg (3 Ml) Ud) 3 ml INH RQ6 PRN PRN Reason: Shortness of Breath Albuterol/Ipratropium (Duoneb 3 Mg/0.5 Mg (3 Ml) Ud) 3 ml INH RQID [facility] Last Admin: 05/31/17 11:29 Dose: 3 ml Aspirin (Ecotrin) 81 mg PO DAILY [facility] Last Admin: 05/31/17 08:59 Dose: 81 mg Atorvastatin Calcium (Lipitor) 20 mg PO HS [facility] Last Admin: 05/30/17 21:18 Dose: 20 mg Bisoprolol Fumarate (Zebeta) 2.5 mg PO DAILY [facility] Last Admin: 05/31/17 09:02 Dose: 2.5 mg Clopidogrel Bisulfate (Plavix) 75 mg PO DAILY [facility] Last Admin: 05/30/17 09:04 Dose: 75 mg Enoxaparin Sodium (Lovenox) 40 mg SC DAILY [facility] PRN Reason: Protocol Last Admin: 05/31/17 09:00 Dose: 40 mg Azithromycin 500 mg/ Sodium (Chloride) 250 mls @ 250 mls/hr IVPB DAILY [facility] PRN Reason: Protocol Last Admin: 05/31/17 11:03 Dose: 250 mls/hr Ceftriaxone Sodium 1 gm/ (Sodium Chloride) 100 mls @ 100 mls/hr IVPB DAILY [facility] PRN Reason: Protocol Last Admin: 05/31/17 09:01 Dose: 100 mls/hr Insulin Human Lispro (Humalog) 0 units SC Q6H [facility] PRN Reason: Protocol Last Admin: 05/31/17 07:03 Dose: Not Given Lorazepam (Ativan) 0.5 mg IM Q6 PRN PRN Reason: Agitation Last Admin: 05/29/17 21:19 Dose: 0.5 mg Magnesium Hydroxide (Milk Of Magnesia) 30 ml PO DAILY PRN PRN Reason: Constipation Methylprednisolone (Solu-Medrol) 30 mg IVP Q12 [facility] Last Admin: 05/31/17 11:08 Dose: 30 mg Pantoprazole Sodium (Protonix Ec Tab) 40 mg PO DAILY [facility] Last Admin: 05/31/17 09:01 Dose: 40 mg Fluticasone/Salmeterol (Advair Diskus 250/50) 1 puff INH Q12H [facility] Last Admin: 05/31/17 08:57 Dose: 1 puff - Labs Labs: 05/31/17 05:50 05/31/17 05:50 PT 11.3 Seconds (9.8-13.1) 05/28/17 22:10 INR 1.0 (0.9-1.2) 05/28/17 22:10 APTT 34.6 Seconds (25.6-37.1) 05/28/17 22:10 - Constitutional Appears: No Acute Distress - Head Exam Head Exam: NORMAL INSPECTION - Eye Exam Eye Exam: Normal appearance - Respiratory Exam Respiratory Exam: Wheezes. absent: Respiratory Distress Additional comments: scatered wheezing - Cardiovascular Exam Cardiovascular Exam: REGULAR RHYTHM, +S1, +S2 - GI/Abdominal Exam GI & Abdominal Exam: Soft, Normal Bowel Sounds. absent: Tenderness - Extremities Exam Extremities Exam: absent: Calf Tenderness - Neurological Exam Neurological Exam: Alert, Awake (baseline dementia) Assessment and Plan - Assessment and Plan (Free Text) Assessment: 1) Acute resp failure with hyperkapnea secondary to COPD exacerbation ( resolved ) - Duoneb Q6 - Methyprednisone 30mg Q12 - Fluticason/ Salmetrol - Azithromycin+ Ceftriaxone - saturating at 96% on nasal canula 2) Adjustment disorder - Hospital delerium - Psych consulted - Continue reorienting the patient. C/W current management 3) DVT prophylaxis: Lovenox <Vila,Ramos K - Last Filed: 06/01/17 16:50> Objective - Vital Signs/Intake and Output Vital Signs (last 24 hours): Temp Pulse Resp BP Pulse Ox 97.9 F 82 20 122/70 96 06/01/17 16:38 06/01/17 16:38 06/01/17 16:38 06/01/17 16:38 06/01/17 16:38 - Medications Medications: Current Medications Albuterol/Ipratropium (Duoneb 3 Mg/0.5 Mg (3 Ml) Ud) 3 ml INH RQ6 PRN PRN Reason: Shortness of Breath Albuterol/Ipratropium (Duoneb 3 Mg/0.5 Mg (3 Ml) Ud) 3 ml INH RQID [facility] Last Admin: 06/01/17 15:39 Dose: 3 ml Aspirin (Ecotrin) 81 mg PO DAILY [facility] Last Admin: 06/01/17 09:16 Dose: 81 mg Atorvastatin Calcium (Lipitor) 20 mg PO HS [facility] Last Admin: 05/31/17 22:15 Dose: 20 mg Bisoprolol Fumarate (Zebeta) 2.5 mg PO DAILY [facility] Last Admin: 06/01/17 09:18 Dose: 2.5 mg Clopidogrel Bisulfate (Plavix) 75 mg PO DAILY [facility] Last Admin: 06/01/17 09:16 Dose: 75 mg Enoxaparin Sodium (Lovenox) 40 mg SC DAILY [facility] PRN Reason: Protocol Last Admin: 06/01/17 09:16 Dose: 40 mg Azithromycin 500 mg/ Sodium (Chloride) 250 mls @ 250 mls/hr IVPB DAILY [facility] PRN Reason: Protocol Last Admin: 06/01/17 09:24 Dose: 250 mls/hr Ceftriaxone Sodium 1 gm/ (Sodium Chloride) 100 mls @ 100 mls/hr IVPB DAILY [facility] PRN Reason: Protocol Last Admin: 06/01/17 09:17 Dose: 100 mls/hr Insulin Human Lispro (Humalog) 0 units SC Q6H [facility] PRN Reason: Protocol Last Admin: 06/01/17 13:09 Dose: Not Given Magnesium Hydroxide (Milk Of Magnesia) 30 ml PO DAILY PRN PRN Reason: Constipation Methylprednisolone (Solu-Medrol) 30 mg IVP Q12 [facility] Last Admin: 06/01/17 09:17 Dose: 30 mg Pantoprazole Sodium (Protonix Ec Tab) 40 mg PO DAILY [facility] Last Admin: 06/01/17 09:17 Dose: 40 mg Quetiapine Fumarate (Seroquel) 12.5 mg PO HS [facility] Fluticasone/Salmeterol (Advair Diskus 250/50) 1 puff INH Q12H [facility] Last Admin: 06/01/17 09:15 Dose: 1 puff - Labs Labs: 05/31/17 05:50 05/31/17 05:50 PT 11.3 Seconds (9.8-13.1) 05/28/17 22:10 INR 1.0 (0.9-1.2) 05/28/17 22:10 APTT 34.6 Seconds (25.6-37.1) 05/28/17 22:10 Assessment and Plan - Assessment and Plan (Free Text) Assessment: Patient was personally seen and examined by me in rounds with residents. Available labs and diagnostic data reviewed. Case, Patient's condition and management plan discussed with residents in rounds. Agree with resident's documentation. Plan: As ordered. Ramos Vila MD
[2017-05-31 20:52] VITALS: O2SAT 96
[2017-05-31] MEDS ORDERED: methylPREDNISolone 30 MG in Sodium Chloride 0.9% 50 ML IVPB SCH (21:00)
[2017-06-01] MEDS: Albuterol-Ipratrop 3 mg / 0.5 (3 ml) UD INH SCH ×3 (07:27→15:39)
[2017-06-01 08:30] VITALS: RESP 20
[2017-06-01] MEDS: Fluticasone-Salmeterol 250-50mcg Diskus INH SCH (09:15)
[2017-06-01] MEDS: Enoxaparin 40 mg Syringe SC SCH (09:16)
[2017-06-01] MEDS: Pantoprazole 40 mg EC Tab PO SCH (09:17)
[2017-06-01] MEDS: MethylPREDNISolone 40 mg Vial IVP SCH (09:17)
[2017-06-01] MEDS: Azithromycin 500 MG in Sodium Chloride 0.9% 250 ML IVPB SCH (09:24)
--- NOTE | 2017-06-01 12:13 | PN ---
DATE: 06/01/2017 SUBJECTIVE: The patient is seen and examined. Interim events noted. The patient remains in regular medical floor. Feels much better. No chest pain, no shortness of breath. PHYSICAL EXAMINATION: GENERAL: The patient is in no acute distress. VITAL SIGNS: Stable. HEART: S1 and S2, normal and regular. LUNGS: Good bilateral air exchange. No rales or rhonchi. No wheezing. ABDOMEN: Soft and nontender. No organomegaly. No . Bowel sounds are present and normal. EXTREMITIES: No edema. No calf swelling. No tenderness. No acute ischemia. 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 DIAGNOSTIC DATA: Available diagnostic data reviewed. PLAN: Overall, the patient is clinically stable. Plan as ordered. Ramos Vila MD
[2017-06-01] MEDS: Insulin Lispro (humaLOG) 100 Units/ml Inj SC SCH (13:09)
[2017-06-01 16:39] VITALS: BP 122/70; PULSE 82; TEMP 97.9
== END 2017-06-01 16:25 | DRG 189 ==
LOC: H.ER 21:33 → H.ERHOLD 23:17 → H.MEDSURG1 05-29 17:00
PROVIDERS: ADMIT Internal Medicine; ATTEND Internal Medicine
PROC: 5A09357 Assistance with Respiratory Ventilation, Less than 24 Consecutive Hours, Continuous Positive Airway Pressure (ICD-10-PCS; principal; 2017-05-28)
PROC: 3E0F73Z Introduction of Anti-inflammatory into Respiratory Tract, Via Natural or Artificial Opening (ICD-10-PCS; 2017-05-28)
DX: J96.02 Acute respiratory failure with hypercapnia (principal); J44.1 Chronic obstructive pulmonary disease with (acute) exacerbation; F01.51 Vascular dementia, unspecified severity, with behavioral disturbance; F43.29 Adjustment disorder with other symptoms; I11.0 Hypertensive heart disease with heart failure; I50.9 Heart failure, unspecified; I25.10 Atherosclerotic heart disease of native coronary artery without angina pectoris; E11.9 Type 2 diabetes mellitus without complications; Z79.51 Long term (current) use of inhaled steroids; Z79.02 Long term (current) use of antithrombotics/antiplatelets; Z79.82 Long term (current) use of aspirin; Z87.891 Personal history of nicotine dependence; Z91.013 Allergy to seafood